=== PATIENT | female | born 1980 | race Two or more races ===

== ENCOUNTER 2024-07-25 05:55 | Day surgery (SDC) | payer OTHER ==
[2024-07-19 10:10] LABS: PH,URINE 5.5 (5.0-8.0); URINE APPEARANCE Clear; URINE BILIRRUBIN Negative (NEGATIVE); URINE BLOOD Negative; URINE COLOR Yellow; URINE GLUCOSE Negative (NEGATIVE); URINE KETONE Negative (NEGATIVE); URINE LEUKOCYTE Negative; URINE NITRATE Negative; URINE PROTEIN Negative (NEGATIVE); URINE UROBILINOGEN 0.2 E.U./dl
[2024-07-19 10:13] LABS: HEMATOCRIT 35.7 % (36.0-45.00); HEMOGLOBIN 11.6 g/dL (12.0-15.00); MEAN CELL VOLUME 71.2 fL (80.00-100.00); MEAN CORPUSCULAR HEMOGLOBIN 23.2 pg (27.00-32.0); MEAN CORPUSCULAR HGB CONC 32.6 g/dl (32.0-36.0); PLATELET COUNT 226 K/uL (150-450); RED BLOOD COUNT 5.02 M/uL (4.00-6.00); RED CELL DISTRIBUTION WIDTH 19.1 % (11.5-14.5)
[2024-07-19 10:14] LABS: URINE BACTERIA 1112.4 uL (0.0-1933); URINE EPITHELIAL CELLS 21.1 uL (0.0-38.8); URINE RBC 3.2 uL (0.0-20.8); URINE WBC 13.4 uL (0.0-23.2)
[2024-07-19 10:25] LABS: INR 0.98; PARTIAL THROMBOPLASTIN TIME 28.6 SECONDS (22.0-34.0); PROTHROMBIN TIME 10.7 SECONDS (9.0-11.5)
[2024-07-19 10:49] LABS: ALBUMIN 3.6 gm/dL (3.4-5.0); BILIRUBIN TOTAL 0.34 mg/dL (0.3-1.2); CALCIUM 8.7 mg/dL (8.5-10.1); CREATININE SERUM 0.58 mg/dL (0.55-1.02); GFR 111.92; GLOBULINA 3.4 G/DL (2.4-3.5); POTASSIUM 4.2 mEq/L (3.5-5.1)
[2024-07-25] MEDS ORDERED: POVIDONE-IODINE 118 ML BOTT TOP ONE (14:45)
[2024-07-25] MEDS ORDERED: MORPHINE SULFATE 4 MG/ML VIAL IV ONE ×2 (15:55→16:45)
== END 2024-07-25 18:15 | disposition home or self-care (01) ==
LOC: CIR.AMB 05:55
PROVIDERS: ATTEND Obstetrics & Gynecology
DX: N93.8 Other specified abnormal uterine and vaginal bleeding (principal)

== ENCOUNTER 2024-11-22 08:00 | Inpatient (IN) | payer OTHER ==
[~2024-11-22] VITALS: Ht 162.6 cm; Wt 85.3 kg
[2024-11-22 09:26] VITALS: BP 130/80
[2024-11-22 09:33] LABS: PH,URINE 6.5 (5.0-8.0); URINE APPEARANCE Clear; URINE BILIRRUBIN Negative (NEGATIVE); URINE BLOOD Large; URINE COLOR Yellow; URINE GLUCOSE Negative (NEGATIVE); URINE KETONE Negative (NEGATIVE); URINE LEUKOCYTE Negative; URINE NITRATE Negative; URINE PROTEIN Negative (NEGATIVE); URINE UROBILINOGEN 0.2 E.U./dl
[2024-11-22 09:37] LABS: URINE BACTERIA 434.4 uL (0.0-1933); URINE EPITHELIAL CELLS 20.7 uL (0.0-38.8); URINE RBC 5.1 uL (0.0-20.8); URINE WBC 16.7 uL (0.0-23.2)
[2024-11-22 09:38] LABS: URINE CAST 0.14 uL (0.0-1.40)
[2024-11-22 09:54] LABS: HEMATOCRIT 30.2 % (36.0-45.00); HEMOGLOBIN 9.4 g/dL (12.0-15.00); MEAN CORPUSCULAR HEMOGLOBIN 20.9 pg (27.00-32.0); MEAN CORPUSCULAR HGB CONC 31.1 g/dl (32.0-36.0); PLATELET COUNT 248 K/uL (150-450); RED BLOOD COUNT 4.49 M/uL (4.00-6.00); RED CELL DISTRIBUTION WIDTH 17.9 % (11.5-14.5)
[2024-11-22 09:57] LABS: MEAN CELL VOLUME 67.2 fL (80.00-100.00)
[2024-11-22 10:24] LABS: INR 0.95; PARTIAL THROMBOPLASTIN TIME 26.5 SECONDS (22.0-34.0); PROTHROMBIN TIME 10.4 SECONDS (9.0-11.5)
[2024-11-22 10:57] LABS: ALBUMIN 3.6 gm/dL (3.4-5.0); BILIRUBIN TOTAL 0.3 mg/dL (0.3-1.2); CALCIUM 8.7 mg/dL (8.5-10.1); CREATININE SERUM 0.59 mg/dL (0.55-1.02); GFR 109.73; GLOBULINA 3.3 G/DL (2.4-3.5); POTASSIUM 4.39 mEq/L (3.5-5.1); TOTAL PROTEIN 6.9 gm/dL (6.4-8.2)
[2024-11-22 11:52] LABS: RH NEGATIVE
[2024-11-28] MEDS ORDERED: CEFAZOLIN SODIUM 1,000 MG VIAL ONE (17:22)
[2024-11-28] MEDS ORDERED: POVIDONE-IODINE 118 ML BOTT TOP ONE (17:23)
[2024-11-28] MEDS ORDERED: SUGAMMADEX SODIUM 200 MG/2 ML VIAL IV ONE (19:53)
[2024-11-28] MEDS ORDERED: CEFAZOLIN SODIUM 1,000 MG VIAL IV SCH (20:33)
[2024-11-28] MEDS ORDERED: MORPHINE SULFATE 4 MG/ML VIAL IV ONE ×2 (20:35→22:10)
[2024-11-28] MEDS ORDERED: MORPHINE SULFATE 4 MG/ML VIAL IV PRN (20:45)
[2024-11-28 20:51] LABS: HEMATOCRIT 30.3 % (36.0-45.00); HEMOGLOBIN 9.3 g/dL (12.0-15.00); MEAN CORPUSCULAR HEMOGLOBIN 20.3 pg (27.00-32.0); MEAN CORPUSCULAR HGB CONC 30.7 g/dl (32.0-36.0); PLATELET COUNT 317 K/uL (150-450)
[2024-11-28 21:01] LABS: MEAN CELL VOLUME 65.9 fL (80.00-100.00)
[2024-11-29 00:53] VITALS: BP 119/73; O2SAT 96
[2024-11-29 06:48] LABS: HEMOGLOBIN 9.4 g/dL (12.0-15.00); MEAN CORPUSCULAR HEMOGLOBIN 20.3 pg (27.00-32.0); MEAN CORPUSCULAR HGB CONC 31.2 g/dl (32.0-36.0); PLATELET COUNT 308 K/uL (150-450)
[2024-11-29 06:55] LABS: MEAN CELL VOLUME 65.2 fL (80.00-100.00)
[2024-11-29 08:00] VITALS: BP 120/78; O2SAT 95
[2024-11-29] MEDS ORDERED: IBUprofen 800 MG TABLET PO SCH (09:00)
[2024-11-29 15:15] VITALS: BP 111/71; O2SAT 98
[2024-11-29] MEDS ORDERED: KETOROLAC TROMETHAMINE 30 MG VIAL IM NR (20:00)
[2024-11-30 00:07] VITALS: BP 115/74; O2SAT 98
[2024-11-30 08:00] VITALS: BP 114/80; O2SAT 98
[2024-11-30 17:16] VITALS: BP 117/77; O2SAT 97
[2024-11-30 23:53] VITALS: BP 105/66; O2SAT 98
[2024-12-01 07:48] VITALS: BP 110/68; O2SAT 97
== END 2024-12-01 12:58 | disposition home or self-care (01) | DRG 743 ==
LOC: O/R 11-28 06:12 → SURG 11-28 06:12 → SURH 11-28 08:00 → SURG 11-28 20:24
PROVIDERS: Obstetrics & Gynecology; ADMIT Obstetrics & Gynecology; ATTEND Obstetrics & Gynecology
PROC: 0UT70ZZ Resection of Bilateral Fallopian Tubes, Open Approach (ICD-10-PCS; 2024-11-28)
PROC: 0UT10ZZ Resection of Left Ovary, Open Approach (ICD-10-PCS; 2024-11-28)
PROC: 0UT90ZZ Resection of Uterus, Open Approach (ICD-10-PCS; principal; 2024-11-28 16:45)
DX: D25.1 Intramural leiomyoma of uterus (principal); N72 Inflammatory disease of cervix uteri; N93.9 Abnormal uterine and vaginal bleeding, unspecified; D64.9 Anemia, unspecified

== ENCOUNTER → 2024-12-06 | Emergency (ER) | payer OTHER ==
[~2024-12-06] VITALS: Ht 162.6 cm; Wt 80.7 kg
[2024-12-06 12:08] LABS: HEMATOCRIT 30.9 % (36.0-45.00); MEAN CORPUSCULAR HEMOGLOBIN 20.1 pg (27.00-32.0); MEAN CORPUSCULAR HGB CONC 31.1 g/dl (32.0-36.0); PLATELET COUNT 294 K/uL (150-450); RED BLOOD COUNT 4.77 M/uL (4.00-6.00); RED CELL DISTRIBUTION WIDTH 18.3 % (11.5-14.5)
[2024-12-06 12:15] LABS: HEMOGLOBIN 9.6 g/dL (12.0-15.00); MEAN CELL VOLUME 64.8 fL (80.00-100.00)
[2024-12-06 12:28] LABS: CREATININE SERUM 0.7 mg/dL (0.55-1.02); GFR 90.08; POTASSIUM 3.88 mEq/L (3.5-5.1)
[2024-12-06 12:36] LABS: URINE EPITHELIAL CELLS 9.4 uL (0.0-38.8)
[2024-12-06 13:04] LABS: URINE APPEARANCE Clear; URINE BILIRRUBIN Negative (NEGATIVE); URINE BLOOD Negative; URINE COLOR Yellow; URINE GLUCOSE Negative (NEGATIVE); URINE KETONE Negative (NEGATIVE); URINE LEUKOCYTE Negative; URINE NITRATE Negative; URINE PROTEIN Negative (NEGATIVE); URINE UROBILINOGEN 0.2 E.U./dl
[2024-12-06 13:06] LABS: URINE CAST 0.44 uL (0.0-1.40); URINE RBC 1.4 uL (0.0-20.8)
== END | disposition home or self-care (01) ==
LOC: ER 10:52
PROVIDERS: General Practice
DX: T88.9XXA Complication of surgical and medical care, unspecified, initial encounter (principal); T81.328A Disruption or dehiscence of closure of other specified internal operation (surgical) wound, initial encounter

== ENCOUNTER 2025-02-20 06:51 | Emergency (ER) | payer OTHER ==
[~2025-02-20] VITALS: Ht 162.6 cm; Wt 82.6 kg
[2025-02-20] MEDS ORDERED: KETOROLAC TROMETHAMINE 30 MG VIAL IV STA (07:54)
[2025-02-20] MEDS ORDERED: RINGERS SOLUTION,LACTATED 1,000 ML IV ONE (08:00)
[2025-02-20] MEDS ORDERED: KETOROLAC TROMETHAMINE 30 MG VIAL ONE (08:06)
[2025-02-20 08:15] LABS: BASO % 0.5 % (0.1-1.2); EOS # 0.13 (0.04-0.54); EOS % 2.2 % (0.7-7.0); HEMATOCRIT 38.2 % (34.1-44.9); HEMOGLOBIN 11.7 g/dL (11.2-15.7); LYMPH # 2.06 (1.18-3.74); LYMPH % 35.1 % (19.3-53.1); MEAN CORPUSCULAR HEMOGLOBIN 21.2 pg (25.6-32.2); MONO # 0.52 (0.24-0.82); MONO % 8.9 % (4.7-12.5); NEUT # 3.12 (1.56-6.13); NEUT % 53.1 % (34.0-71.1); PLATELET COUNT 258 K/uL (163-369); RED BLOOD COUNT 5.52 M/uL (3.93-5.22); RED CELL DISTRIBUTION WIDTH 21.1 % (11.6-14.4)
[2025-02-20 08:51] LABS: INR 1.01; PARTIAL THROMBOPLASTIN TIME 26.2 SECONDS (22.0-34.0)
[2025-02-20 09:29] LABS: ALBUMIN 3.5 gm/dL (3.4-5.0); BILIRUBIN TOTAL 0.26 mg/dL (0.3-1.2); CALCIUM 8.9 mg/dL (8.5-10.1); CREATININE SERUM 0.56 mg/dL (0.55-1.02); GFR 116.54; GLOBULINA 3.6 G/DL (2.4-3.5); POTASSIUM 4.34 mEq/L (3.5-5.1); TOTAL PROTEIN 7.1 gm/dL (6.4-8.2)
[2025-02-20 15:41] VITALS: BP 121/82
[2025-02-20 23:26] LABS: URINE APPEARANCE Clear; URINE BILIRRUBIN Negative (NEGATIVE); URINE BLOOD Large; URINE COLOR Yellow; URINE GLUCOSE Negative (NEGATIVE); URINE KETONE Trace (NEGATIVE); URINE LEUKOCYTE Trace; URINE NITRATE Negative; URINE PROTEIN Negative (NEGATIVE)
[2025-02-20 23:30] LABS: URINE BACTERIA 234.9 uL (0.0-1933); URINE CAST 1.62 uL (0.0-1.40); URINE RBC 419.9 uL (0.0-20.8); URINE WBC 10.2 uL (0.0-23.2)
== END 2025-02-20 22:50 | disposition home or self-care (01) ==
LOC: ER 07:02
PROVIDERS: General Practice; Obstetrics & Gynecology
DX: N93.9 Abnormal uterine and vaginal bleeding, unspecified (principal); Z90.710 Acquired absence of both cervix and uterus
CPT/HCPCS: 36415; 74177; Q9965

== ENCOUNTER 2025-05-17 16:27 | Emergency (ER) | payer OTHER ==
[~2025-05-17] VITALS: Ht 162.6 cm; Wt 79.4 kg
[2025-05-17 17:21] VITALS: BP 100/74; O2SAT 99
[2025-05-17 18:20] LABS: BASO % 0.6 % (0.1-1.2); EOS # 0.17 (0.04-0.54); EOS % 2.6 % (0.7-7.0); LYMPH # 2.63 (1.18-3.74); LYMPH % 40.1 % (19.3-53.1); MEAN PLATELET VOLUME 12.20 fl (9.4-12.4); MONO # 0.59 (0.24-0.82); MONO % 9.0 % (4.7-12.5); NEUT # 3.11 (1.56-6.13); NEUT % 47.4 % (34.0-71.1); RED CELL DISTRIBUTION WIDTH 17.2 % (11.6-14.4)
[2025-05-17 18:53] LABS: INR 1.02
[2025-05-17 19:00] LABS: URINE APPEARANCE Cloudy; URINE BILIRRUBIN Negative (NEGATIVE); URINE BLOOD Negative; URINE COLOR Yellow; URINE GLUCOSE Negative (NEGATIVE); URINE KETONE 15 (NEGATIVE); URINE LEUKOCYTE Large; URINE NITRATE Negative; URINE PROTEIN Trace (NEGATIVE); URINE UROBILINOGEN 1.0 E.U./dl
[2025-05-17 19:01] LABS: URINE BACTERIA 4922.4 uL (0.0-1933); URINE EPITHELIAL CELLS 58.4 uL (0.0-38.8); URINE RBC 17.5 uL (0.0-20.8); URINE WBC 456.9 uL (0.0-23.2)
[2025-05-17 19:04] LABS: URINE CAST 0.58 uL (0.0-1.40)
[2025-05-17] MEDS ORDERED: CEFTRIAXONE SODIUM 1,000 MG VIAL IM ONE (19:30)
[2025-05-17] MEDS ORDERED: CEFTRIAXONE SODIUM 1,000 MG VIAL ONE (19:34)
[2025-05-17] MEDS ORDERED: LIDOCAINE HCL 1% 10ML VIAL ONE (19:34)
[2025-05-17] MEDS ORDERED: CEPHALEXIN500 M1 PO (19:36)
[2025-05-17 19:38] LABS: ALT/SGPT 21.0 U/L (12-78); AST/SGOT 13.0 U/L (15-37); BILIRUBIN TOTAL 0.41 mg/dL (0.3-1.2); BUN CREA RATIO 25.0 (7.0-25.0); CREATININE SERUM 0.57 mg/dL (0.55-1.02); GFR 113.69; GLOBULINA 3.4 G/DL (2.4-3.5); GLUCOSE FASTING 88.0 mg/dL (65-100); OSMOLALITY SERUM 287.0 MOSM/KG (275-295)
== END 2025-05-17 19:42 | disposition home or self-care (01) ==
LOC: ER 16:27
PROVIDERS: General Practice
DX: N39.0 Urinary tract infection, site not specified (principal); N93.9 Abnormal uterine and vaginal bleeding, unspecified

== ENCOUNTER 2025-05-22 09:00 | Day surgery (SDC) | payer OTHER ==
[~2025-05-22 09:00] MED LIST: CEPHALEXIN500 M1 PO
[2025-05-22] MEDS ORDERED: CEFAZOLIN SODIUM 1,000 MG VIAL IV ONE (14:00)
[2025-05-22] MEDS ORDERED: CHLORHEXIDINE GLUCONATE 120 ML BOTTLE TOP ONE (14:00)
[2025-05-22] MEDS ORDERED: POVIDONE-IODINE 118 ML BOTT TOP ONE (14:00)
[2025-05-22] MEDS ORDERED: MORPHINE SULFATE 4 MG/ML VIAL IV ONE (16:30)
[2025-05-22] MEDS ORDERED: ONDANSETRON HCL 2 MG/ML VIAL IV ONE (16:35)
== END 2025-05-22 18:05 | disposition home or self-care (01) ==
LOC: CIR.AMB 09:00
PROVIDERS: ATTEND Obstetrics & Gynecology
DX: N89.8 Other specified noninflammatory disorders of vagina (principal); N93.8 Other specified abnormal uterine and vaginal bleeding; A58 Granuloma inguinale